=== PATIENT | male | born 1990 | race African-American/Black ===

== ENCOUNTER 2016-11-23 10:33 | Inpatient (IN) | payer OTHER ==
[2016-11-23 12:08] VITALS: BMI 28.7
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
[2016-11-23] MEDS ORDERED: MAGNESIUM HYDROX 2400MG/30ML ORAL SUSPENSION 30 ML CUP PO PRN (14:00)
[2016-11-23] MEDS ORDERED: LOPERAMIDE HCL 2 MG CAPSULE PO PRN (14:00)
[2016-11-23] MEDS ORDERED: ACETAMINOPHEN 325 MG TABLET (FP) PO PRN (14:00)
[2016-11-23] MEDS ORDERED: IBUPROFEN 400 MG TABLET (FP) PO PRN (14:00)
[2016-11-23] MEDS ORDERED: MAG HYDROX/AL HYDROX/SIMETH 30 ML UNIT-DOSE CUP PO PRN (14:00)
[2016-11-23] MEDS ORDERED: NICOTINE POLACRILEX 2 MG GUM BC PRN (14:00)
[2016-11-23] MEDS ORDERED: MENTHOL/PHENOL 1 EACH UD MM PRN (14:00)
[2016-11-23] MEDS ORDERED: MAGNESIUM CITRATE 300 ML BOTTLE PO PRN (14:00)
[2016-11-23] MEDS ORDERED: guaiFENesin/D-METHORPHAN HB 10 ML UNIT-DOSE CUPS PO PRN (14:00)
[2016-11-23] MEDS: NICOTINE 14 MG/24 HOURS TOPICAL PATCH TD SCH (17:37)
[2016-11-23] MEDS ORDERED: TUBERCULIN PPD 5 TU/0.1ML VIAL ID ONE (17:38)
[2016-11-23 18:30] LABS: MCH 29.6 pg (25.7-33.7); MCHC 33.4 g/dl (32.0-35.9); MEAN CELL VOLUME 88.7 fl (80-96); MEAN PLT VOLUME 10.5 fl (7.5-11.1); PLATELET COUNT 166 K/MM3 (134-434); RDW 15.1 % (11.9-15.9); WHITE BLOOD COUNT 10.1 K/mm3 (4.0-10.0)
[2016-11-23 19:06] LABS: ALBUMIN 3.9 g/dl (3.4-5.0); ANION GAP 9 (8-16); CALCIUM 8.7 mg/dL (8.5-10.1); CO2 28 mmol/L (21-32); GLUCOSE,RANDOM 96 mg/dL (74-106); SGOT/AST 12 U/L (15-37); SGPT/ALT 23 U/L (12-78)
[2016-11-23 19:08] LABS: ALK PHOS 94 U/L (45-117); BILIRUBIN,TOTAL 0.5 mg/dL (0.2-1.0); CREATININE 1.2 mg/dL (0.7-1.3); TOT PROT 7.1 g/dl (6.4-8.2)
[2016-11-23 19:36] LABS: URINE APPEARANCE CLEAR; URINE BILIRUBIN NEGATIVE (NEGATIVE); URINE BLOOD NEGATIVE (NEGATIVE); URINE COLOR LT. YELLOW; URINE GLUCOSE (UA) NEGATIVE (NEGATIVE); URINE KETONE NEGATIVE (NEGATIVE); URINE NITRITE NEGATIVE (NEGATIVE); URINE PROTEIN NEGATIVE (NEGATIVE); URINE UROBILINOGEN 0.2 mg/dL (0.2-1.0)
[2016-11-23] MEDS: THIAMINE HCL 100 MG TABLET (FP) PO SCH (20:59)
[2016-11-23] MEDS: DIVALPROEX SODIUM 500 MG TABLET E.C. PO SCH (20:59)
[2016-11-24] MEDS: P-EPHED 60MG/TRIPROLIDI 2.5MG TABLET PO PRN ×2 (06:12→16:40)
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
[2016-11-24] MEDS: SERTRALINE HCL 50 MG TABLET (FP) PO SCH (11:13)
[2016-11-24] MEDS: NICOTINE 14 MG/24 HOURS TOPICAL PATCH TD SCH (11:14)
[2016-11-24] MEDS: DIVALPROEX SODIUM 500 MG TABLET E.C. PO SCH ×2 (11:14→21:35)
[2016-11-24] MEDS: PRENATAL VITAMINS W/ FOLIC ACID TABLET (FP) PO SCH (11:14)
--- NOTE | 2016-11-24 12:56 | EKG ---
Test Reason : Blood Pressure : / mmHG Vent. Rate : 088 BPM Atrial Rate : 088 BPM P-R Int : 128 ms QRS Dur : 088 ms QT Int : 348 ms P-R-T Axes : 000 126 127 degrees QTc Int : 421 ms LIMB LEAD REVERSAL REPEAT TRACING NO PREVIOUS ECGS AVAILABLE Confirmed by GERRY BENDER MD ([id number]) on 11/24/2016 12:56:22 PM Referred By: Emely Escamilla Confirmed By:GERRY BENDER MD
[2016-11-24] MEDS: THIAMINE HCL 100 MG TABLET (FP) PO SCH (21:34)
[2016-11-25] MEDS: P-EPHED 60MG/TRIPROLIDI 2.5MG TABLET PO PRN ×2 (06:31→19:24)
[2016-11-25] MEDS: PRENATAL VITAMINS W/ FOLIC ACID TABLET (FP) PO SCH (10:45)
[2016-11-25] MEDS: DIVALPROEX SODIUM 500 MG TABLET E.C. PO SCH ×2 (10:46→21:34)
[2016-11-25] MEDS: SERTRALINE HCL 50 MG TABLET (FP) PO SCH ×2 (10:46→10:49)
[2016-11-25] MEDS: NICOTINE 14 MG/24 HOURS TOPICAL PATCH TD SCH (10:48)
[2016-11-25] MEDS: ARIPiprazole 5 MG TABLET (FP) PO SCH (10:48)
[2016-11-25] MEDS: THIAMINE HCL 100 MG TABLET (FP) PO SCH (21:33)
[2016-11-25] MEDS: diphenhydrAMINE HCL 50 MG CAPSULE PO PRN (21:34)
[2016-11-26] MEDS: P-EPHED 60MG/TRIPROLIDI 2.5MG TABLET PO PRN ×2 (06:24→15:56)
[2016-11-26] MEDS: SERTRALINE HCL 50 MG TABLET (FP) PO SCH ×2 (09:38→10:46)
[2016-11-26] MEDS: ARIPiprazole 5 MG TABLET (FP) PO SCH (09:38)
[2016-11-26] MEDS: DIVALPROEX SODIUM 500 MG TABLET E.C. PO SCH ×2 (09:38→21:57)
[2016-11-26] MEDS: PRENATAL VITAMINS W/ FOLIC ACID TABLET (FP) PO SCH (09:38)
[2016-11-26] MEDS: NICOTINE 14 MG/24 HOURS TOPICAL PATCH TD SCH (09:39)
[2016-11-26] MEDS: hydrOXYzine PAMOATE 50 MG CAPSULE (FP) PO PRN (19:08)
[2016-11-26] MEDS: THIAMINE HCL 100 MG TABLET (FP) PO SCH (21:57)
[2016-11-26] MEDS: diphenhydrAMINE HCL 50 MG CAPSULE PO PRN (21:58)
[2016-11-27] MEDS: ARIPiprazole 5 MG TABLET (FP) PO SCH (09:51)
[2016-11-27] MEDS: DIVALPROEX SODIUM 500 MG TABLET E.C. PO SCH ×2 (09:51→21:15)
[2016-11-27] MEDS: PRENATAL VITAMINS W/ FOLIC ACID TABLET (FP) PO SCH (09:51)
[2016-11-27] MEDS: SERTRALINE HCL 50 MG TABLET (FP) PO SCH ×2 (09:51→09:54)
[2016-11-27] MEDS: NICOTINE 14 MG/24 HOURS TOPICAL PATCH TD SCH (09:51)
[2016-11-27] MEDS: LORATADINE 10 MG TABLET PO SCH (15:00)
[2016-11-27] MEDS: hydrOXYzine PAMOATE 50 MG CAPSULE (FP) PO PRN (15:48)
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
[2016-11-27] MEDS ORDERED: ARIPiprazole 5 MG TABLET (FP) PO ONE (18:00)
[2016-11-27] MEDS: THIAMINE HCL 100 MG TABLET (FP) PO SCH (21:15)
[2016-11-27] MEDS: diphenhydrAMINE HCL 50 MG CAPSULE PO PRN (21:15)
[2016-11-28 07:05] VITALS: BP 100/58; PULSE 67; TEMP 97.6
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
[2016-11-28] MEDS ORDERED: ARIPiprazole 10 MG TABLET PO SCH (10:00)
[2016-11-28] MEDS: NICOTINE 14 MG/24 HOURS TOPICAL PATCH TD SCH (10:43)
[2016-11-28] MEDS: LORATADINE 10 MG TABLET PO SCH (10:43)
[2016-11-28] MEDS: PRENATAL VITAMINS W/ FOLIC ACID TABLET (FP) PO SCH (10:43)
[2016-11-28] MEDS: DIVALPROEX SODIUM 500 MG TABLET E.C. PO SCH ×2 (10:43→22:09)
[2016-11-28] MEDS: SERTRALINE HCL 50 MG TABLET (FP) PO SCH (10:43)
[2016-11-28] MEDS: THIAMINE HCL 100 MG TABLET (FP) PO SCH (22:09)
== END 2016-11-28 20:30 | DRG 895 ==
LOC: YASAS 10:33 → Y3W 14:04
PROVIDERS: ADMIT Psychiatry & Neurology Psychiatry; ATTEND Psychiatry & Neurology Psychiatry
PROC: HZ42ZZZ Group Counseling for Substance Abuse Treatment, Cognitive-Behavioral (ICD-10-PCS; principal; 2016-11-23)
DX: F14.20 Cocaine dependence, uncomplicated (principal); F25.9 Schizoaffective disorder, unspecified; F31.9 Bipolar disorder, unspecified; Z89.512 Acquired absence of left leg below knee; Z91.5 Personal history of self-harm
CPT/HCPCS: 36415; 80053; 81003; 85027; 86593; 93005; 93010

== ENCOUNTER 2017-08-18 14:27 | Inpatient (IN) | payer OTHER ==
[2017-08-18 17:54] VITALS: BMI 34.5
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
[2017-08-18] MEDS ORDERED: MAGNESIUM CITRATE 300 ML BOTTLE PO PRN (21:51)
[2017-08-18] MEDS ORDERED: MENTHOL/PHENOL 1 EACH UD MM PRN (21:51)
[2017-08-18] MEDS ORDERED: NICOTINE POLACRILEX 2 MG GUM BC PRN (21:51)
[2017-08-18] MEDS ORDERED: guaiFENesin/D-METHORPHAN HB 10 ML UNIT-DOSE CUPS PO PRN (21:51)
[2017-08-18] MEDS ORDERED: LOPERAMIDE HCL 2 MG CAPSULE PO PRN (21:51)
[2017-08-18] MEDS ORDERED: MAG HYDROX/AL HYDROX/SIMETH 30 ML UNIT-DOSE CUP PO PRN (21:51)
[2017-08-18] MEDS ORDERED: MAGNESIUM HYDROX 2400MG/30ML ORAL SUSPENSION 30 ML CUP PO PRN (21:51)
[2017-08-18] MEDS ORDERED: P-EPHED 60MG/TRIPROLIDI 2.5MG TABLET PO PRN (21:51)
[2017-08-18] MEDS ORDERED: ACETAMINOPHEN 325 MG TABLET (FP) PO PRN (21:51)
[2017-08-18] MEDS ORDERED: IBUPROFEN 400 MG TABLET (FP) PO PRN (21:51)
[2017-08-18] MEDS ORDERED: MELATONIN 5 MG TABLETS PO PRN (22:00)
[2017-08-18] MEDS: THIAMINE HCL 100 MG TABLET (FP) PO SCH (23:23)
--- NOTE | 2017-08-19 00:03 | PN ---
[facility] Progress Note Note: Psychiatry Attending's chief arson division note : Informed of this new admission. Asked to enter orders for medications. 27 y/o male with Schizophrenia. Referral from [facility] report : read. Listed on medication reconciliation sheet : trazodone 100 mg po hs wellbutrin 150 mg po daily haldol 5 mg po hs zoloft 75 mg po daily Medications already taken at [facility]. As per patient. Quoted by nurse on duty ([address] [place] [address]). Review of pharmacy claims : Not informative. No urgency.Orders deferred. Until evaluation by unit psychiatrist. In AM.
[2017-08-19 06:33] LABS: URINE APPEARANCE CLEAR; URINE BILIRUBIN NEGATIVE (<2.0 mg/dL); URINE COLOR YELLOW; URINE GLUCOSE (UA) NEGATIVE (NEGATIVE); URINE KETONE NEGATIVE (NEGATIVE); URINE LEUK ESTERASE NEGATIVE (NEGATIVE); URINE NITRITE NEGATIVE (NEGATIVE); URINE PROTEIN NEGATIVE (NEGATIVE); URINE UROBILINOGEN NEGATIVE mg/dL (0.2-1.0)
[2017-08-19] MEDS: PRENATAL VITAMINS W/ FOLIC ACID TABLET (FP) PO SCH (09:37)
[2017-08-19] MEDS: NICOTINE 14 MG/24 HOURS TOPICAL PATCH TD SCH (09:38)
[2017-08-19 10:29] LABS: BILIRUBIN,TOTAL 0.4 mg/dL (0.2-1.0); CHLORIDE 107 mmol/L (98-107); POTASSIUM 4.4 mmol/L (3.5-5.1); SODIUM 141 mmol/L (136-145)
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
[2017-08-19 10:35] LABS: ALBUMIN 3.7 g/dl (3.4-5.0); ALK PHOS 111 U/L (45-117); ANION GAP 8 (8-16); BLOOD UREA NITROGEN 16 mg/dL (7-18); CALCIUM 8.6 mg/dL (8.5-10.1); CO2 26 mmol/L (21-32); CREATININE 1.2 mg/dL (0.7-1.3); GLUCOSE,RANDOM 87 mg/dL (74-106); SGOT/AST 17 U/L (15-37); SGPT/ALT 37 U/L (12-78); TOT PROT 6.9 g/dl (6.4-8.2)
[2017-08-19 10:41] LABS: HEMATOCRIT 43.1 % (35.4-49); HEMOGLOBIN 14.4 GM/dL (11.7-16.9); MCH 28.6 pg (25.7-33.7); MCHC 33.4 g/dl (32.0-35.9); MEAN CELL VOLUME 85.7 fl (80-96); MEAN PLT VOLUME 9.8 fl (7.5-11.1); PLATELET COUNT 207 K/MM3 (134-434); RBC 5.03 M/mm3 (4.00-5.60); RDW 13.8 % (11.9-15.9); WHITE BLOOD COUNT 7.7 K/mm3 (4.0-10.0)
--- NOTE | 2017-08-19 11:42 | EKG ---
Test Reason : Blood Pressure : / mmHG Vent. Rate : 081 BPM Atrial Rate : 081 BPM P-R Int : 150 ms QRS Dur : 086 ms QT Int : 368 ms P-R-T Axes : 051 065 057 degrees QTc Int : 427 ms NORMAL SINUS RHYTHM NORMAL ECG WHEN COMPARED WITH ECG OF 23-NOV-2016 22:28, QRS AXIS SHIFTED LEFT CRITERIA FOR LATERAL INFARCT ARE NO LONGER PRESENT Confirmed by ROBERT CHARLES, EDINSON ([id number]) on 08/19/2017 11:42:09 AM Referred By: Confirmed By:EDINSON JONES MD
[2017-08-19] MEDS ORDERED: PNEUMOCOCCAL 23 VACCINE 0.5 ML VIAL IM ONE (12:00)
[2017-08-19] MEDS ORDERED: PNEUMOC 13-VAL CONJ-DIP CRM/PF 0.5 ML DISP.SYRIN IM ONE (12:00)
[2017-08-19] MEDS ORDERED: SERTRALINE HCL 50 MG TABLET (FP) PO SCH (12:30)
--- NOTE | 2017-08-19 12:49 | PN ---
[facility] Progress Note Note: Vital Signs Temperature 97.9 F 08/19/17 07:19 Pulse Rate 67 08/19/17 07:19 Respiratory Rate 18 08/19/17 07:19 Blood Pressure 121/63 08/19/17 07:19 O2 Sat by Pulse Oximetry (%) Laboratory Last Values WBC 7.7 K/mm3 (4.0-10.0) 08/19/17 08:30 RBC 5.03 M/mm3 (4.00-5.60) 08/19/17 08:30 Hgb 14.4 GM/dL (11.7-16.9) 08/19/17 08:30 Hct 43.1 % (35.4-49) 08/19/17 08:30 MCV 85.7 fl (80-96) 08/19/17 08:30 MCH 28.6 pg (25.7-33.7) 08/19/17 08:30 MCHC 33.4 g/dl (32.0-35.9) 08/19/17 08:30 RDW 13.8 % (11.9-15.9) 08/19/17 08:30 Plt Count 207 K/MM3 (134-434) D 08/19/17 08:30 MPV 9.8 fl (7.5-11.1) 08/19/17 08:30 Sodium 141 mmol/L (136-145) 08/19/17 08:30 Potassium 4.4 mmol/L (3.5-5.1) 08/19/17 08:30 Chloride 107 mmol/L (98-107) 08/19/17 08:30 Carbon Dioxide 26 mmol/L (21-32) 08/19/17 08:30 Anion Gap 8 (8-16) 08/19/17 08:30 BUN 16 mg/dL (7-18) 08/19/17 08:30 Creatinine 1.2 mg/dL (0.7-1.3) 08/19/17 08:30 Creat Clearance w eGFR > 60 (>60) 08/19/17 08:30 Random Glucose 87 mg/dL (74-106) 08/19/17 08:30 Calcium 8.6 mg/dL (8.5-10.1) 08/19/17 08:30 Total Bilirubin 0.4 mg/dL (0.2-1.0) 08/19/17 08:30 AST 17 U/L (15-37) D 08/19/17 08:30 ALT 37 U/L (12-78) D 08/19/17 08:30 Alkaline Phosphatase 111 U/L (45-117) 08/19/17 08:30 Total Protein 6.9 g/dl (6.4-8.2) 08/19/17 08:30 Albumin 3.7 g/dl (3.4-5.0) 08/19/17 08:30 Urine Color Yellow 08/18/17 22:00 Urine Appearance Clear 08/18/17 22:00 Urine pH 6.0 (5.0-8.0) 08/18/17 22:00 Ur Specific [place] 1.023 (1.001-1.035) 08/18/17 22:00 Urine Protein Negative (NEGATIVE) 08/18/17 22:00 Urine Glucose (UA) Negative (NEGATIVE) 08/18/17 22:00 Urine Ketones Negative (NEGATIVE) 08/18/17 22:00 Urine Blood Negative (NEGATIVE) 08/18/17 22:00 Urine Nitrite Negative (NEGATIVE) 08/18/17 22:00 Urine Bilirubin Negative (<2.0 mg/dL) 08/18/17 22:00 Urine Urobilinogen Negative mg/dL (0.2-1.0) 08/18/17 22:00 Ur Leukocyte Esterase Negative (NEGATIVE) 08/18/17 22:00 Labs reviewed, continue to monitor
[2017-08-19] MEDS ORDERED: SERTRALINE HCL 25 MG TABLET (FP) ONE (13:24)
[2017-08-19] MEDS ORDERED: SERTRALINE HCL 50 MG TABLET (FP) ONE (13:24)
[2017-08-19] MEDS: SERTRALINE HCL 50 MG, SERTRALINE HCL 25 MG PO SCH (13:26)
[2017-08-19] MEDS: hydrOXYzine PAMOATE 50 MG CAPSULE (FP) PO PRN (14:21)
[2017-08-19] MEDS: buPROPion HCL 75 MG TABLET PO SCH (14:22)
[2017-08-19] MEDS: HALOPERIDOL 5 MG TABLET (FP) PO SCH (21:30)
[2017-08-19] MEDS: THIAMINE HCL 100 MG TABLET (FP) PO SCH (21:30)
--- NOTE | 2017-08-19 22:39 | PN ---
[facility] Progress Note Note: Psychiatry Attending's information technology intern note : Called to enter order for trazodone. Chart reviewed.Dr John's note : appreciated. Treatment plan revisited.Discussed with patient. Via telephone, in the presence of nurse on duty. Mr López is made aware of the potential for priapism. Also informed of the risk for oversedation and falls. " I need my trazodone for sleep.It helps me a lot." Patient came from [facility] with his current regimen. Consisting of three antidepressant medications. Denies history of adverse effects.Endorses efficacy. Plan : trazodone 50 mg po hs.Reduced. Ordered at patient's request.
[2017-08-19] MEDS: traZODone HCL 50 MG TABLET (FP) PO SCH (22:51)
[2017-08-20] MEDS ORDERED: SERTRALINE HCL 25 MG TABLET (FP) ONE (09:15)
[2017-08-20] MEDS ORDERED: SERTRALINE HCL 50 MG TABLET (FP) ONE (09:15)
[2017-08-20] MEDS: PRENATAL VITAMINS W/ FOLIC ACID TABLET (FP) PO SCH (10:02)
[2017-08-20] MEDS: buPROPion HCL 75 MG TABLET PO SCH (10:02)
[2017-08-20] MEDS: SERTRALINE HCL 50 MG, SERTRALINE HCL 25 MG PO SCH (10:03)
[2017-08-20] MEDS: NICOTINE 14 MG/24 HOURS TOPICAL PATCH TD SCH (10:03)
[2017-08-20] MEDS: hydrOXYzine PAMOATE 50 MG CAPSULE (FP) PO PRN ×2 (14:44→21:25)
[2017-08-20] MEDS: THIAMINE HCL 100 MG TABLET (FP) PO SCH (21:24)
[2017-08-20] MEDS: HALOPERIDOL 5 MG TABLET (FP) PO SCH (21:24)
[2017-08-20] MEDS: traZODone HCL 50 MG TABLET (FP) PO SCH (21:24)
[2017-08-21] MEDS ORDERED: SERTRALINE HCL 25 MG TABLET (FP) ONE (08:49)
[2017-08-21] MEDS ORDERED: SERTRALINE HCL 50 MG TABLET (FP) ONE (08:49)
[2017-08-21] MEDS: PRENATAL VITAMINS W/ FOLIC ACID TABLET (FP) PO SCH (10:09)
[2017-08-21] MEDS: SERTRALINE HCL 50 MG, SERTRALINE HCL 25 MG PO SCH (10:09)
[2017-08-21] MEDS: buPROPion HCL 75 MG TABLET PO SCH (10:10)
[2017-08-21] MEDS: NICOTINE 14 MG/24 HOURS TOPICAL PATCH TD SCH (10:10)
[2017-08-21] MEDS: hydrOXYzine PAMOATE 50 MG CAPSULE (FP) PO PRN ×2 (14:10→21:17)
[2017-08-21] MEDS: THIAMINE HCL 100 MG TABLET (FP) PO SCH (21:17)
[2017-08-21] MEDS: traZODone HCL 50 MG TABLET (FP) PO SCH (21:17)
[2017-08-21] MEDS: HALOPERIDOL 5 MG TABLET (FP) PO SCH (21:17)
--- NOTE | 2017-08-21 22:21 | PN ---
[facility] Progress Note Note: Psychiatry Attending's retail security professional note : Called to address patient's complaint of paranoid ideation. Mr López has requested telephone contact with this appeals writer. Issue : fleeting paranoid thoughts. Patient reports feeling that he is being " spied upon ". Being followed and being the object of surrounding conversations. " I used to be on 10 mg of haldol at bedtime." " That is the dose that keeps these thoughts away." Patient wishes to get back on 10 mg of haldol. Agreeable to the idea of splitting the dose. He is made aware of potential for NMS/EPS adverse effects. Consents to prophylactic doses of cogentin. Familiar with that drug (taken in the past). Informed of risk of anticholinergic side effects : urinary retention,dry mouth,constipation,blurred vision. Mr López is articulate about his symptoms.Reliable historian. Fully cognizant of his medications.Motivated for stabilization. Able to negotiate a therapeutic alliance with the treatment team. Intervention : haldol 5 mg po am + hs cogentin 0.5 mg po bid Verbal consent obtained from patient. Will follow.
[2017-08-22] MEDS ORDERED: SERTRALINE HCL 50 MG TABLET (FP) ONE (08:38)
[2017-08-22] MEDS ORDERED: SERTRALINE HCL 25 MG TABLET (FP) ONE (08:38)
[2017-08-22] MEDS: SERTRALINE HCL 50 MG, SERTRALINE HCL 25 MG PO SCH (09:37)
[2017-08-22] MEDS: BENZTROPINE MESYLATE 1 MG TABLET (FP) PO SCH ×2 (09:37→21:17)
[2017-08-22] MEDS: buPROPion HCL 75 MG TABLET PO SCH (09:38)
[2017-08-22] MEDS: HALOPERIDOL 5 MG TABLET (FP) PO SCH ×2 (09:38→21:17)
[2017-08-22] MEDS: PRENATAL VITAMINS W/ FOLIC ACID TABLET (FP) PO SCH (09:39)
[2017-08-22] MEDS: NICOTINE 14 MG/24 HOURS TOPICAL PATCH TD SCH (09:40)
[2017-08-22] MEDS: hydrOXYzine PAMOATE 50 MG CAPSULE (FP) PO PRN ×2 (14:23→21:17)
[2017-08-22] MEDS: traZODone HCL 50 MG TABLET (FP) PO SCH (21:17)
[2017-08-22] MEDS: THIAMINE HCL 100 MG TABLET (FP) PO SCH (21:17)
[2017-08-23] MEDS ORDERED: SERTRALINE HCL 50 MG TABLET (FP) ONE (08:37)
[2017-08-23] MEDS ORDERED: SERTRALINE HCL 25 MG TABLET (FP) ONE (08:37)
[2017-08-23] MEDS: SERTRALINE HCL 50 MG, SERTRALINE HCL 25 MG PO SCH (09:59)
[2017-08-23] MEDS: HALOPERIDOL 5 MG TABLET (FP) PO SCH ×2 (09:59→21:25)
[2017-08-23] MEDS: PRENATAL VITAMINS W/ FOLIC ACID TABLET (FP) PO SCH (09:59)
[2017-08-23] MEDS: buPROPion HCL 75 MG TABLET PO SCH (10:00)
[2017-08-23] MEDS: NICOTINE 14 MG/24 HOURS TOPICAL PATCH TD SCH (10:00)
[2017-08-23] MEDS: BENZTROPINE MESYLATE 1 MG TABLET (FP) PO SCH ×2 (10:41→21:26)
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
[2017-08-23] MEDS: hydrOXYzine PAMOATE 50 MG CAPSULE (FP) PO PRN ×2 (14:38→21:27)
--- NOTE | 2017-08-23 15:31 | PN ---
[facility] Progress Note Note: Psychiatry Attending's note : This is a follow-up consultation. Patient is interviewed.Medical students in attendance. Case discussed with the flosser Cami.His note is appreciated. Mr López is cooperative,friendly,attentive and comfortable in this session. He reports feeling much better.No delusions elicited.Free of hallucinations. Patient is conversant,logical,appropriate,motivated and well-related. Cognitively intact.Patient endorses good sleep and a robust appetite. Feels rested and confident in staff for a smooth transition to long-term rehabilitation. Mr López shows the qualities of a good historian.Clearly invested in his treatment. He is adherent to medications.Offers no complaints of adverse effects. " I sleep well.My medications are working.I don't hear voices or feel paranoid. " Mood is self-described as fine.Affect is bright.Personal hygiene remains adequate. Patient denies suicidal,homicidal ideation,intent or plan.Noted as future- oriented. " I want to get housing,stop panhandling to get drugs and go back to school to better my life." Observed as agile with the use of his crutches.Mr López is responding favorably to this regime of care. Hospital course continues to be benign.Attendance to groups/ADL activities are performed independently. The patient is currently functioning at his baseline.Mr López is NOT a danger to self or others at time of this examination. Discussed,in post-session, with the nursing staff.Will continue current plan of care.Side effects : none.Patient is in full agreement.
[2017-08-23] MEDS: THIAMINE HCL 100 MG TABLET (FP) PO SCH (21:25)
[2017-08-23] MEDS: traZODone HCL 50 MG TABLET (FP) PO SCH (21:25)
[2017-08-24] MEDS ORDERED: SERTRALINE HCL 50 MG TABLET (FP) ONE (09:00)
[2017-08-24] MEDS ORDERED: SERTRALINE HCL 25 MG TABLET (FP) ONE (09:00)
[2017-08-24] MEDS: PRENATAL VITAMINS W/ FOLIC ACID TABLET (FP) PO SCH (10:09)
[2017-08-24] MEDS: buPROPion HCL 75 MG TABLET PO SCH (10:10)
[2017-08-24] MEDS: HALOPERIDOL 5 MG TABLET (FP) PO SCH ×2 (10:10→21:20)
[2017-08-24] MEDS: SERTRALINE HCL 50 MG, SERTRALINE HCL 25 MG PO SCH (10:10)
[2017-08-24] MEDS: BENZTROPINE MESYLATE 1 MG TABLET (FP) PO SCH ×2 (10:10→21:20)
[2017-08-24] MEDS: NICOTINE 14 MG/24 HOURS TOPICAL PATCH TD SCH (10:11)
[2017-08-24] MEDS: hydrOXYzine PAMOATE 50 MG CAPSULE (FP) PO PRN ×2 (14:12→21:20)
[2017-08-24] MEDS: traZODone HCL 50 MG TABLET (FP) PO SCH (21:20)
[2017-08-24] MEDS: THIAMINE HCL 100 MG TABLET (FP) PO SCH (21:21)
[2017-08-25] MEDS: hydrOXYzine PAMOATE 50 MG CAPSULE (FP) PO PRN ×3 (04:19→21:14)
[2017-08-25] MEDS ORDERED: SERTRALINE HCL 50 MG TABLET (FP) ONE (09:04)
[2017-08-25] MEDS ORDERED: SERTRALINE HCL 25 MG TABLET (FP) ONE (09:04)
[2017-08-25] MEDS: BENZTROPINE MESYLATE 1 MG TABLET (FP) PO SCH ×2 (09:47→21:14)
[2017-08-25] MEDS: PRENATAL VITAMINS W/ FOLIC ACID TABLET (FP) PO SCH (09:47)
[2017-08-25] MEDS: NICOTINE 14 MG/24 HOURS TOPICAL PATCH TD SCH (09:47)
[2017-08-25] MEDS: SERTRALINE HCL 50 MG, SERTRALINE HCL 25 MG PO SCH (09:47)
[2017-08-25] MEDS: buPROPion HCL 75 MG TABLET PO SCH (09:48)
[2017-08-25] MEDS: HALOPERIDOL 5 MG TABLET (FP) PO SCH ×2 (09:49→21:14)
[2017-08-25] MEDS: THIAMINE HCL 100 MG TABLET (FP) PO SCH (21:14)
[2017-08-25] MEDS: traZODone HCL 50 MG TABLET (FP) PO SCH (21:14)
[2017-08-26] MEDS ORDERED: SERTRALINE HCL 50 MG TABLET (FP) ONE (08:32)
[2017-08-26] MEDS ORDERED: SERTRALINE HCL 25 MG TABLET (FP) ONE (08:33)
[2017-08-26] MEDS: SERTRALINE HCL 50 MG, SERTRALINE HCL 25 MG PO SCH (10:03)
[2017-08-26] MEDS: PRENATAL VITAMINS W/ FOLIC ACID TABLET (FP) PO SCH (10:03)
[2017-08-26] MEDS: HALOPERIDOL 5 MG TABLET (FP) PO SCH ×2 (10:03→21:17)
[2017-08-26] MEDS: BENZTROPINE MESYLATE 1 MG TABLET (FP) PO SCH ×2 (10:03→21:17)
[2017-08-26] MEDS: NICOTINE 14 MG/24 HOURS TOPICAL PATCH TD SCH (10:04)
[2017-08-26] MEDS: buPROPion HCL 75 MG TABLET PO SCH (10:04)
[2017-08-26] MEDS: hydrOXYzine PAMOATE 50 MG CAPSULE (FP) PO PRN ×2 (16:40→21:16)
[2017-08-26] MEDS: traZODone HCL 50 MG TABLET (FP) PO SCH (21:16)
[2017-08-26] MEDS: THIAMINE HCL 100 MG TABLET (FP) PO SCH (21:17)
[2017-08-27] MEDS ORDERED: SERTRALINE HCL 50 MG TABLET (FP) ONE (09:19)
[2017-08-27] MEDS ORDERED: SERTRALINE HCL 25 MG TABLET (FP) ONE (09:19)
[2017-08-27] MEDS: PRENATAL VITAMINS W/ FOLIC ACID TABLET (FP) PO SCH (10:07)
[2017-08-27] MEDS: SERTRALINE HCL 50 MG, SERTRALINE HCL 25 MG PO SCH (10:07)
[2017-08-27] MEDS: BENZTROPINE MESYLATE 1 MG TABLET (FP) PO SCH ×2 (10:07→21:26)
[2017-08-27] MEDS: HALOPERIDOL 5 MG TABLET (FP) PO SCH ×2 (10:08→21:26)
[2017-08-27] MEDS: buPROPion HCL 75 MG TABLET PO SCH (10:08)
[2017-08-27] MEDS: NICOTINE 14 MG/24 HOURS TOPICAL PATCH TD SCH (10:08)
[2017-08-27] MEDS: THIAMINE HCL 100 MG TABLET (FP) PO SCH (21:25)
[2017-08-27] MEDS: hydrOXYzine PAMOATE 50 MG CAPSULE (FP) PO PRN (21:26)
[2017-08-27] MEDS: traZODone HCL 50 MG TABLET (FP) PO SCH (21:26)
[2017-08-28] MEDS ORDERED: SERTRALINE HCL 50 MG TABLET (FP) ONE (08:46)
[2017-08-28] MEDS ORDERED: SERTRALINE HCL 25 MG TABLET (FP) ONE (08:46)
[2017-08-28] MEDS: PRENATAL VITAMINS W/ FOLIC ACID TABLET (FP) PO SCH (10:03)
[2017-08-28] MEDS: BENZTROPINE MESYLATE 1 MG TABLET (FP) PO SCH ×2 (10:03→21:34)
[2017-08-28] MEDS: buPROPion HCL 75 MG TABLET PO SCH (10:03)
[2017-08-28] MEDS: HALOPERIDOL 5 MG TABLET (FP) PO SCH ×2 (10:03→21:33)
[2017-08-28] MEDS: SERTRALINE HCL 50 MG, SERTRALINE HCL 25 MG PO SCH (10:03)
[2017-08-28] MEDS: NICOTINE 14 MG/24 HOURS TOPICAL PATCH TD SCH (10:04)
[2017-08-28] MEDS: hydrOXYzine PAMOATE 50 MG CAPSULE (FP) PO PRN (19:19)
[2017-08-28] MEDS: traZODone HCL 50 MG TABLET (FP) PO SCH (21:33)
[2017-08-28] MEDS: THIAMINE HCL 100 MG TABLET (FP) PO SCH (21:34)
[2017-08-29] MEDS ORDERED: SERTRALINE HCL 25 MG TABLET (FP) ONE (09:00)
[2017-08-29] MEDS ORDERED: SERTRALINE HCL 50 MG TABLET (FP) ONE (09:00)
[2017-08-29] MEDS: buPROPion HCL 75 MG TABLET PO SCH (10:14)
[2017-08-29] MEDS: BENZTROPINE MESYLATE 1 MG TABLET (FP) PO SCH ×2 (10:14→21:24)
[2017-08-29] MEDS: HALOPERIDOL 5 MG TABLET (FP) PO SCH ×2 (10:14→21:23)
[2017-08-29] MEDS: PRENATAL VITAMINS W/ FOLIC ACID TABLET (FP) PO SCH (10:14)
[2017-08-29] MEDS: SERTRALINE HCL 50 MG, SERTRALINE HCL 25 MG PO SCH (10:14)
[2017-08-29] MEDS: NICOTINE 14 MG/24 HOURS TOPICAL PATCH TD SCH (10:16)
[2017-08-29] MEDS: hydrOXYzine PAMOATE 50 MG CAPSULE (FP) PO PRN (18:00)
[2017-08-29] MEDS: THIAMINE HCL 100 MG TABLET (FP) PO SCH (21:23)
[2017-08-29] MEDS: traZODone HCL 50 MG TABLET (FP) PO SCH (21:23)
[2017-08-30] MEDS ORDERED: SERTRALINE HCL 25 MG TABLET (FP) ONE (08:38)
[2017-08-30] MEDS ORDERED: SERTRALINE HCL 50 MG TABLET (FP) ONE (08:38)
[2017-08-30] MEDS: SERTRALINE HCL 50 MG, SERTRALINE HCL 25 MG PO SCH (10:23)
[2017-08-30] MEDS: buPROPion HCL 75 MG TABLET PO SCH (10:23)
[2017-08-30] MEDS: PRENATAL VITAMINS W/ FOLIC ACID TABLET (FP) PO SCH (10:23)
[2017-08-30] MEDS: HALOPERIDOL 5 MG TABLET (FP) PO SCH ×2 (10:24→21:21)
[2017-08-30] MEDS: NICOTINE 14 MG/24 HOURS TOPICAL PATCH TD SCH (10:24)
[2017-08-30] MEDS: BENZTROPINE MESYLATE 1 MG TABLET (FP) PO SCH ×2 (10:24→21:21)
[2017-08-30] MEDS: hydrOXYzine PAMOATE 50 MG CAPSULE (FP) PO PRN ×2 (12:46→21:21)
[2017-08-30] MEDS: traZODone HCL 50 MG TABLET (FP) PO SCH (21:21)
[2017-08-30] MEDS: THIAMINE HCL 100 MG TABLET (FP) PO SCH (21:21)
[2017-08-31] MEDS ORDERED: SERTRALINE HCL 25 MG TABLET (FP) ONE (09:28)
[2017-08-31] MEDS ORDERED: SERTRALINE HCL 50 MG TABLET (FP) ONE (09:28)
[2017-08-31] MEDS: buPROPion HCL 75 MG TABLET PO SCH (10:36)
[2017-08-31] MEDS: HALOPERIDOL 5 MG TABLET (FP) PO SCH ×2 (10:37→21:29)
[2017-08-31] MEDS: BENZTROPINE MESYLATE 1 MG TABLET (FP) PO SCH ×2 (10:37→21:29)
[2017-08-31] MEDS: PRENATAL VITAMINS W/ FOLIC ACID TABLET (FP) PO SCH (10:37)
[2017-08-31] MEDS: NICOTINE 14 MG/24 HOURS TOPICAL PATCH TD SCH (10:37)
[2017-08-31] MEDS: SERTRALINE HCL 50 MG, SERTRALINE HCL 25 MG PO SCH (10:37)
[2017-08-31] MEDS: hydrOXYzine PAMOATE 50 MG CAPSULE (FP) PO PRN (18:25)
[2017-08-31] MEDS: traZODone HCL 50 MG TABLET (FP) PO SCH (21:29)
[2017-08-31] MEDS: THIAMINE HCL 100 MG TABLET (FP) PO SCH (21:29)
[2017-09-01] MEDS ORDERED: SERTRALINE HCL 50 MG TABLET (FP) ONE (09:15)
[2017-09-01] MEDS ORDERED: SERTRALINE HCL 25 MG TABLET (FP) ONE (09:16)
[2017-09-01] MEDS: BENZTROPINE MESYLATE 1 MG TABLET (FP) PO SCH ×2 (10:45→21:18)
[2017-09-01] MEDS: PRENATAL VITAMINS W/ FOLIC ACID TABLET (FP) PO SCH (10:45)
[2017-09-01] MEDS: buPROPion HCL 75 MG TABLET PO SCH (10:45)
[2017-09-01] MEDS: HALOPERIDOL 5 MG TABLET (FP) PO SCH ×2 (10:45→21:18)
[2017-09-01] MEDS: NICOTINE 14 MG/24 HOURS TOPICAL PATCH TD SCH (10:46)
[2017-09-01] MEDS: SERTRALINE HCL 50 MG, SERTRALINE HCL 25 MG PO SCH (10:46)
[2017-09-01] MEDS: THIAMINE HCL 100 MG TABLET (FP) PO SCH (21:17)
[2017-09-01] MEDS: traZODone HCL 50 MG TABLET (FP) PO SCH (21:18)
[2017-09-02] MEDS ORDERED: SERTRALINE HCL 25 MG TABLET (FP) ONE (09:11)
[2017-09-02] MEDS ORDERED: SERTRALINE HCL 50 MG TABLET (FP) ONE (09:11)
[2017-09-02] MEDS: SERTRALINE HCL 50 MG, SERTRALINE HCL 25 MG PO SCH (10:22)
[2017-09-02] MEDS: BENZTROPINE MESYLATE 1 MG TABLET (FP) PO SCH ×2 (10:22→21:31)
[2017-09-02] MEDS: PRENATAL VITAMINS W/ FOLIC ACID TABLET (FP) PO SCH (10:22)
[2017-09-02] MEDS: HALOPERIDOL 5 MG TABLET (FP) PO SCH ×2 (10:22→21:31)
[2017-09-02] MEDS: buPROPion HCL 75 MG TABLET PO SCH (10:23)
[2017-09-02] MEDS: NICOTINE 14 MG/24 HOURS TOPICAL PATCH TD SCH (10:23)
[2017-09-02] MEDS: hydrOXYzine PAMOATE 50 MG CAPSULE (FP) PO PRN (13:56)
[2017-09-02] MEDS: THIAMINE HCL 100 MG TABLET (FP) PO SCH (21:31)
[2017-09-02] MEDS: traZODone HCL 50 MG TABLET (FP) PO SCH (21:31)
[2017-09-03] MEDS ORDERED: SERTRALINE HCL 50 MG TABLET (FP) ONE (09:14)
[2017-09-03] MEDS ORDERED: SERTRALINE HCL 25 MG TABLET (FP) ONE (09:14)
[2017-09-03] MEDS: SERTRALINE HCL 50 MG, SERTRALINE HCL 25 MG PO SCH (10:08)
[2017-09-03] MEDS: BENZTROPINE MESYLATE 1 MG TABLET (FP) PO SCH ×2 (10:08→21:33)
[2017-09-03] MEDS: PRENATAL VITAMINS W/ FOLIC ACID TABLET (FP) PO SCH (10:08)
[2017-09-03] MEDS: buPROPion HCL 75 MG TABLET PO SCH (10:08)
[2017-09-03] MEDS: HALOPERIDOL 5 MG TABLET (FP) PO SCH ×2 (10:08→21:32)
[2017-09-03] MEDS: NICOTINE 14 MG/24 HOURS TOPICAL PATCH TD SCH (10:09)
[2017-09-03] MEDS: hydrOXYzine PAMOATE 50 MG CAPSULE (FP) PO PRN (18:30)
[2017-09-03] MEDS: THIAMINE HCL 100 MG TABLET (FP) PO SCH (21:32)
[2017-09-03] MEDS: traZODone HCL 50 MG TABLET (FP) PO SCH (21:32)
[2017-09-04] MEDS ORDERED: SERTRALINE HCL 50 MG TABLET (FP) ONE (09:27)
[2017-09-04] MEDS ORDERED: SERTRALINE HCL 25 MG TABLET (FP) ONE (09:27)
[2017-09-04] MEDS: BENZTROPINE MESYLATE 1 MG TABLET (FP) PO SCH ×2 (10:10→21:13)
[2017-09-04] MEDS: NICOTINE 14 MG/24 HOURS TOPICAL PATCH TD SCH (10:10)
[2017-09-04] MEDS: SERTRALINE HCL 50 MG, SERTRALINE HCL 25 MG PO SCH (10:11)
[2017-09-04] MEDS: buPROPion HCL 75 MG TABLET PO SCH (10:12)
[2017-09-04] MEDS: PRENATAL VITAMINS W/ FOLIC ACID TABLET (FP) PO SCH (10:12)
[2017-09-04] MEDS: HALOPERIDOL 5 MG TABLET (FP) PO SCH ×2 (10:12→21:13)
[2017-09-04] MEDS: traZODone HCL 50 MG TABLET (FP) PO SCH (21:13)
[2017-09-04] MEDS: THIAMINE HCL 100 MG TABLET (FP) PO SCH (21:13)
[2017-09-05] MEDS ORDERED: SERTRALINE HCL 50 MG TABLET (FP) ONE (09:31)
[2017-09-05] MEDS ORDERED: SERTRALINE HCL 25 MG TABLET (FP) ONE (09:31)
[2017-09-05] MEDS: buPROPion HCL 75 MG TABLET PO SCH (10:16)
[2017-09-05] MEDS: PRENATAL VITAMINS W/ FOLIC ACID TABLET (FP) PO SCH (10:16)
[2017-09-05] MEDS: BENZTROPINE MESYLATE 1 MG TABLET (FP) PO SCH (10:16)
[2017-09-05] MEDS: SERTRALINE HCL 50 MG, SERTRALINE HCL 25 MG PO SCH (10:16)
[2017-09-05] MEDS: NICOTINE 14 MG/24 HOURS TOPICAL PATCH TD SCH (10:17)
[2017-09-05] MEDS: HALOPERIDOL 5 MG TABLET (FP) PO SCH (10:17)
[2017-09-06] MEDS: HALOPERIDOL 5 MG TABLET (FP) PO SCH ×2 (00:24→09:58)
[2017-09-06] MEDS: BENZTROPINE MESYLATE 1 MG TABLET (FP) PO SCH ×2 (00:24→09:58)
[2017-09-06] MEDS: traZODone HCL 50 MG TABLET (FP) PO SCH (00:24)
[2017-09-06] MEDS: THIAMINE HCL 100 MG TABLET (FP) PO SCH (00:25)
[2017-09-06 07:54] VITALS: BP 133/84; PULSE 93; TEMP 97.5
[2017-09-06] MEDS ORDERED: SERTRALINE HCL 50 MG TABLET (FP) ONE (09:10)
[2017-09-06] MEDS ORDERED: SERTRALINE HCL 25 MG TABLET (FP) ONE (09:10)
[2017-09-06] MEDS: SERTRALINE HCL 50 MG, SERTRALINE HCL 25 MG PO SCH (09:58)
[2017-09-06] MEDS: buPROPion HCL 75 MG TABLET PO SCH (09:59)
[2017-09-06] MEDS: NICOTINE 14 MG/24 HOURS TOPICAL PATCH TD SCH (09:59)
[2017-09-06] MEDS: PRENATAL VITAMINS W/ FOLIC ACID TABLET (FP) PO SCH (09:59)
--- NOTE | 2017-09-06 11:38 | PN ---
Psychiatric Progress Note Vital Signs: Vital Signs Period Temp Pulse Resp BP Sys/Martinez Pulse Ox Last 24 Hr 97.5 F 93 18-18 133/84 Date of Session: 09/06/17 Chief Complaint:: Discharge visit HPI: Alcohol,Cocaine dependence comorbid with Schizoaffective disorder,PTSD. ROS: Below the knee amputation. Current Medications: Active Medications Generic Name Dose Route Start Last Admin Trade Name Freq PRN Reason Stop Dose Admin Acetaminophen 650 mg 08/18/17 21:51 Tylenol - PO Q4H PRN FEVER Al Hydroxide/Mg Hydroxide 30 ml 08/18/17 21:51 Mylanta Oral Suspension - PO Q6H PRN DYSPEPSIA Benztropine Mesylate 0.5 mg 08/23/17 10:15 09/06/17 09:58 Cogentin - PO 0.5 mg BID VICKY Administration Bupropion HCl 150 mg 08/19/17 12:30 09/06/17 09:59 Wellbutrin - PO 150 mg DAILY VICKY Administration Eucalyptus/Menthol/Phenol/Sorbitol 1 each 08/18/17 21:51 Cepastat Lozenge - MM Q4H PRN SORE THROAT Guaifenesin 10 ml 08/18/17 21:51 Robitussin Dm - PO Q6H PRN COUGH Haloperidol 5 mg 08/19/17 22:00 09/06/17 00:24 Haldol - PO Not Given HS VICKY Haloperidol 5 mg 08/22/17 10:00 09/06/17 09:58 Haldol - PO 5 mg DAILY VICKY Administration Hydroxyzine Pamoate 50 mg 08/18/17 21:51 09/03/17 18:30 Vistaril - PO 50 mg Q4H PRN Administration AGITATION Ibuprofen 400 mg 08/18/17 21:51 Motrin - PO Q6H PRN Pain level 4-6 Loperamide HCl 4 mg 08/18/17 21:51 Imodium - PO Q6H PRN DIARRHEA Magnesium Citrate 300 ml 08/18/17 21:51 Citroma - PO Q48H PRN CONSTIPATION Magnesium Hydroxide 30 ml 08/18/17 21:51 Milk Of Magnesia - PO DAILY PRN CONSTIPATION Melatonin 5 mg 08/18/17 22:00 Melatonin PO HS PRN INSOMNIA Nicotine 14 mg 08/19/17 10:00 09/06/17 09:59 Nicoderm Patch - TD 14 mg DAILY VICKY Administration Nicotine Polacrilex 2 mg 08/18/17 21:51 Nicorette Gum - BC Q2H PRN NICOTINE REPLACEMENT RX Multivit/Folic Acid/Iron 1 tab 08/19/17 10:00 09/06/17 09:59 Vitamins (Sjr) - PO 1 tab DAILY VICKY Administration Pseudoephedrine/Triprolidine 1 combo 08/18/17 21:51 Actifed - PO TID PRN NASAL CONGESTION Sertraline HCl 50 mg/ 75 mg 08/19/17 12:30 09/06/17 09:58 Sertraline HCl 25 mg PO 75 mg DAILY VICKY Administration Thiamine HCl 100 mg 08/18/17 22:00 09/06/17 00:25 Vitamin B1 - PO Not Given HS VICKY Trazodone HCl 50 mg 08/19/17 22:45 09/06/17 00:24 Desyrel - PO Not Given HS VICKY Current Side Effect: No Lab tests ordered: No Lab tests reviewed: Yes Provider note:: Patient completed this program today.He has met his treatment goals and will continue to address his issues on outpatient basis at [facility].Patient will continue current medications as per plan.scripts for 30 days supply provided. therapy provided focusing on relapse prevention .Support,coping skills utilizations as well as other resourses to maintain recovery has been discussed with the patient . Patient is stable for discharge today. Total face to face time:: 30 Mental Status Exam - Mental Status Exam Alert and Oriented to: Time, Place, Person Cognitive Function: Grossly Intact Patient Appearance: Well Groomed Mood: Hopeful, Euthymic Affect: Appropriate, Mood Congruent Patient Behavior: Cooperative Speech Pattern: Clear Voice Loudness: Normal Thought Process: Goal Oriented Thought Disorder: Being Controlled Hallucinations: Denies Suicidal Ideation: Denies Homicidal Ideation: Denies Insight/Judgement: Fair Sleep: Fair Appetite: Good Muscle strength/Tone: Normal Gait/Station: Other (ambulating with cane) Psychiatric Treatment Plan - Problem List (1) Alcohol dependence Current Visit: Yes (2) PTSD (post-traumatic stress disorder) Current Visit: Yes (3) ADHD (attention deficit hyperactivity disorder) Current Visit: Yes (4) Cocaine dependence, uncomplicated Current Visit: Yes (5) Nicotine dependence Current Visit: Yes Qualifiers: Nicotine product type: cigarettes Substance use status: uncomplicated Qualified Code(s): F17.210 - Nicotine dependence, cigarettes, uncomplicated (6) S/P below knee amputation Current Visit: Yes Qualifiers: Laterality: left Qualified Code(s): Z89.512 - Acquired absence of left leg below knee (7) Schizoaffective disorder Current Visit: Yes
== END 2017-09-06 15:45 | disposition home or self-care (01) | DRG 895 ==
LOC: YASAS 14:27 → Y5N 18:20
PROVIDERS: ADMIT Psychiatry & Neurology Psychiatry; ATTEND Psychiatry & Neurology Psychiatry
PROC: HZ42ZZZ Group Counseling for Substance Abuse Treatment, Cognitive-Behavioral (ICD-10-PCS; principal; 2017-08-18)
DX: F10.20 Alcohol dependence, uncomplicated (principal); F14.20 Cocaine dependence, uncomplicated; F17.210 Nicotine dependence, cigarettes, uncomplicated; F41.9 Anxiety disorder, unspecified; F25.9 Schizoaffective disorder, unspecified; F43.10 Post-traumatic stress disorder, unspecified; F90.9 Attention-deficit hyperactivity disorder, unspecified type; Z89.512 Acquired absence of left leg below knee; Z91.5 Personal history of self-harm
CPT/HCPCS: 36415; 80053; 80164; 81003; 85027; 86593; 90732; 93005; 93010; G0009